=== PATIENT | male | born 1995 | race Two or more races ===

== ENCOUNTER 2021-02-21 10:39 | Emergency (ER) | payer OTHER ==
[~2021-02-21] VITALS: Ht 177.8 cm; Wt 99.8 kg
[2021-02-21 10:53] VITALS: BP 159/92
[2021-02-21] MEDS ORDERED: ACETAMINOPHEN ES 500 MG TABLET PO ONE (11:00)
[2021-02-21] MEDS ORDERED: ACETAMINOPHEN ES 500 MG TABLET ONE (11:02)
--- NOTE | 2021-02-21 11:02 | NUR ---
PATIENT TAKEN TO CT.
--- NOTE | 2021-02-21 11:37 | NUR ---
patient a/ox4, no change in loc, -n/v. ambulatory with steaday gait. Discharged to PD.
== END 2021-02-21 11:38 ==
LOC: ER 11:07
DX: S00.83XA Contusion of other part of head, initial encounter (principal); R51.9 Headache, unspecified; W22.8XXA Striking against or struck by other objects, initial encounter; Y93.89 Activity, other specified; Y92.89 Other specified places as the place of occurrence of the external cause; Y99.8 Other external cause status
CPT/HCPCS: 70450-TC

== ENCOUNTER 2022-01-25 10:01 | Inpatient (IN) | payer OTHER ==
[~2022-01-25] VITALS: Ht 172.7 cm; Wt 120.7 kg
--- NOTE | 2022-01-25 10:01 | NUR ---
PT [facility] FROM [facility] C/O WEAKNESS AND LETHARGIC STARTED THIS MORNING. PT IS AAOX2, ON NON RB AT 15LPM, HOOKED TO V/S MONITOR, KEPT RESTED AND COMFORTABLE. WILL CONTINUE TO MONITOR.
--- NOTE | 2022-01-25 10:13 | NUR ---
SEEN AND EXAMINED BY .
--- NOTE | 2022-01-25 10:22 | NUR ---
IV LINE ESTABLISHED BLOOD DRAWN AND SENT TO LAB.
--- NOTE | 2022-01-25 10:27 | NUR ---
RT AT BEDSIDE FOR ABG.
[2022-01-25] MEDS ORDERED: NALOXONE HCL 0.4 MG/ML AMPUL IV ONE (10:30)
[2022-01-25] MEDS ORDERED: NALOXONE PREFILLED SYRINGE 2 MG/2 ML SYRINGE ONE (10:31)
[2022-01-25 10:43] LABS: BASOPHILS % (AUTO) 0.2 % (0.0-2.0); EOSINOPHILS % (AUTO) 0.4 % (0.0-6.0); HEMATOCRIT 42 % (39-51); HEMOGLOBIN 14.3 g/dL (13.5-17.5); LYMPHOCYTES # (AUTO) 1.4 K/uL (0.8-4.8); LYMPHOCYTES % (AUTO) 12.3 % (20.0-44.0); MEAN CORPUSCULAR HGB CONC 34 g/dl (31.0-36.0); MEAN CORPUSCULAR VOLUME 88 fL (80-96); MONOCYTES # (AUTO) 0.6 K/uL (0.1-1.30); MONOCYTES % (AUTO) 5.3 % (2.0-12.0); NEUTROPHILS # (AUTO) 9.2 K/uL (1.8-8.9); NEUTROPHILS % (AUTO) 81.8 % (43.0-81.0); PLATELET COUNT (AUTO) 127 K/uL (150-450); WHITE BLOOD COUNT (AUTO) 11.3 K/uL (4.3-11.0)
[2022-01-25 10:45] LABS: CALCIUM, SERUM 8.4 mg/dL (8.5-10.1); CARBON DIOXIDE 27 mmol/L (21-32); CHLORIDE 102 mmol/L (98-107); CREATININE 1.1 mg/dL (0.6-1.3); GLUCOSE 126 mg/dL (74-106); POTASSIUM 4.6 mmol/L (3.5-5.1); SODIUM SERUM 138 mmol/L (136-145); UREA NITROGEN, BLOOD 15 mg/dL (7-18)
[2022-01-25 10:50] LABS: ALANINE AMINOTRANSFERASE 47 U/L (12-78); ALBUMIN 4.1 g/dL (3.4-5.0); ALCOHOL, BLOOD < 3 mg/dL (0-0); ALKALINE PHOSPHATASE 163 U/L (46-116); ASPARTATE AMINOTRANSFERASE 21 U/L (15-37); BILIRUBIN,DIRECT 0.1 mg/dL (0.0-0.2); BILIRUBIN,TOTAL 0.2 mg/dL (0.2-1.0); TOTAL PROTEIN, SERUM 7.9 g/dL (6.4-8.2)
[2022-01-25 10:54] LABS: ACETAMINOPHEN 0 ug/ml (10-30)
[2022-01-25 11:06] LABS: BILIRUBIN,URINE NEGATIVE (NEGATIVE); COLOR,URINE YELLOW (YELLOW); LEUKOCYTE ESTERASE ,URINE NEGATIVE (NEGATIVE); NITRITE, URINE NEGATIVE (NEGATIVE); PH,URINE 6.5 (5.0-8.0); PROTEIN,URINE NEGATIVE (NEGATIVE); UGLUCOSE NEGATIVE (NEGATIVE); UROBILINOGEN,URINE 0.2 EU/dL (0.2)
[2022-01-25 11:09] LABS: MetHb 0.6 % (0.0-1.5); SITE, ABG Right Radial
--- NOTE | 2022-01-25 12:14 | NUR ---
CALLED RADIOLOGY FOR CT SCAN.
--- NOTE | 2022-01-25 12:18 | NUR ---
COVID SWAB DONE AND SENT TO LAB
--- NOTE | 2022-01-25 12:18 | NUR ---
PT IS WHEELED TO CT SCAN VIA [facility].
[2022-01-25 12:23] LABS: ABG BASE EXCESS 1.8 mmol/L; ABG PCO2 59.3 mmHg (35.0-45.0); ABG PH 7.316 (7.350-7.450); ABG PO2 58.3 mmHg (75.0-100.0); COHb 0.4 % (0.5-1.5); O2Hb 89.3 % (94.0-97.0); VENT MODE, BG 15/5 20 30%
--- NOTE | 2022-01-25 12:41 | NUR ---
KLEVER JORDAN AT BEDSIDE FOR EVAL.
[2022-01-25] MEDS ORDERED: MAG HYDROX/AL HYDROX/SIMETH 30 ML UDC PO PRN (13:00)
[2022-01-25] MEDS ORDERED: MAGNESIUM HYDROXIDE 30 ML UDC PO PRN (13:00)
[2022-01-25] MEDS ORDERED: Z GUARD REMEDY 4 OZ OINT TP PRN (13:00)
[2022-01-25] MEDS ORDERED: ONDANSETRON HCL/PF 4 MG/2 ML VIAL IVP PRN (13:00)
[2022-01-25] MEDS ORDERED: ACETAMINOPHEN 325 MG TABLET PO PRN (13:00)
[2022-01-25] MEDS: IV NS 0.9% 1,000 ML IV PRN (16:17)
--- NOTE | 2022-01-25 17:53 | NUR ---
Received pt on 15 LPM via [facility]. ABG done at arrival per MD Robert. Pt placed on BIPAP 15/5 20 30% BIPAP settings changed post 1 hr ABG as noted. Will continue to monitor
[2022-01-25] MEDS ORDERED: ENOXAPARIN SODIUM 40 MG/0.4 ML DISP.SYRIN SQ ONE (18:53)
[2022-01-25] MEDS ORDERED: PANTOPRAZOLE 40 MG VIAL ONE (18:53)
[2022-01-25] MEDS: PANTOPRAZOLE 40 MG VIAL IV SCH (18:55)
[2022-01-25] MEDS: ENOXAPARIN SODIUM 40 MG/0.4 ML DISP.SYRIN SQ SCH (18:58)
--- NOTE | 2022-01-25 19:00 | NUR ---
PATIENT AAOX3, ANSWERING QUESTIONS, BREATHING EVEN AND NON LABORED, RAMON AT BEDSIDE
--- NOTE | 2022-01-25 19:56 | NUR ---
ICU 253
--- NOTE | 2022-01-25 20:15 | NUR ---
RN NOTES RECEIVED ER ADMISSION REPORT FROM DON SHELL. ALL PERTINENT ADMISSION INFO REGARDING PT NOTED. WILL WAIT FOR PT TO BE TRANSFERRED TO UNIT AND ADDRESS NEEDS ACCORDINGLY. FARM MACHINERY ASSEMBLER MADE AWARE.
--- NOTE | 2022-01-25 20:27 | NUR ---
REPORT GIVEN TO JAMI OCHOA FOR CONTINUATION OF CARE
[2022-01-25 20:50] VITALS: BP 108/73
--- NOTE | 2022-01-25 20:50 | NUR ---
RN NOTES RECEIVED PT FROM ER VIA [facility] ACCOMPANIED BY 2 ER STAFF AND 2 [facility]. PT TRANSFERRED TO BED VIA 2 PERSON ASSIST. PT IS A/OX2; LETHARGIC. PT ON 2L OF 02 VIA AL WITH RESPIRATIONS EVEN AND UNLABORED. COMPREHENSIVE PHYSICAL ASSESSMENT, PT NOTED TO HAVE R ARM SWELLING. PATIENT CARE DONE. BASELINE VITALS SIGNS TAKEN. CALL LIGHT WITHIN REACH, SAFETY MEASURES AND ISOLATION PRECAUTION IN PLACE, WILL CONTINUE MONITOR AND ASSESS THROUGHOUT THE SHIFT. WILL CARRY OUT MD ORDERS ACCORDINGLY. STRAND BUNCHER FINE WIRE MADE AWARE.
--- NOTE | 2022-01-25 20:54 | NUR ---
PT TRANSFERRED TO ICU 253 VIA ACLS PROTOCOL. AAO X 2, NS INFUSING AT [place] AT 75 ML/HR, PT STABLE ON 2 L VIA NC, SATURATION AT 97%.
[2022-01-25 21:00] VITALS: BP 108/73
[2022-01-25 22:00] VITALS: BP 113/63
[2022-01-25 22:30] VITALS: BP 113/63
[2022-01-25 23:00] VITALS: BP_SYST 106; BP_SYST 116; BP_DIAS 55; BP_DIAS 89
[2022-01-25 23:30] VITALS: BP 116/89
--- NOTE | 2022-01-25 23:32 | NUR ---
RN NOTES NOTIFIED HANANE RACHEL (RUPERT KAMARA) FOR PT'S DIET ORDER, MENTIONED THAT PER ADMISSION NOTES NPO FOR NOW UNTIL PT IS FULLY AWAKE. CURRENTLY PT IS MORE AWAKE AND ORIENTED AND HAS BEEN REQUESTING FOR FOOD AND DRINK. FOREIGN LEGAL CONSULTANT MADE AWARE. AWAITING FOR HANANE RACHEL'S RESPONSE. Addendum: 01/25/22 at 2343 by WANDA CHARLES RN PER HANANE RACHEL (RUPERT KAMARA) JUST MONITOR OVERNIGHT AND MAINTAIN NPO FOR NOW. FOREIGN LEGAL CONSULTANT MADE AWARE.
[2022-01-26] VITALS (39 sets, daily range): BP systolic 93–149; BP diastolic 23–101
--- NOTE | 2022-01-26 04:00 | NUR ---
RN NOTES NO NOTED CHANGES IN PATIENT CONDITION AT THIS TIME; PATIENT VITALS STABLE, NO SIGNS OF ACUTE RESPIRATORY DISTRESS. AM PATIENT CARE RENDERED.WILL CONTINUE TO MONITOR AND REASSESS FOR ANY CHANGES THROUGHOUT THE SHIFT.
[2022-01-26 05:08] LABS: BASOPHILS % (AUTO) 0.5 % (0.0-2.0); EOSINOPHILS % (AUTO) 1.2 % (0.0-6.0); HEMATOCRIT 39 % (39-51); HEMOGLOBIN 12.9 g/dL (13.5-17.5); MEAN CORPUSCULAR HGB CONC 33 g/dl (31.0-36.0); MEAN CORPUSCULAR VOLUME 89 fL (80-96); MONOCYTES # (AUTO) 0.6 K/uL (0.1-1.30); MONOCYTES % (AUTO) 7.4 % (2.0-12.0); NEUTROPHILS # (AUTO) 5.6 K/uL (1.8-8.9); NEUTROPHILS % (AUTO) 66.9 % (43.0-81.0); PLATELET COUNT (AUTO) 114 K/uL (150-450); RED BLOOD CELL COUNT(AUTO) 4.34 MIL/uL (4.5-6.0); WHITE BLOOD COUNT (AUTO) 8.4 K/uL (4.3-11.0)
[2022-01-26 05:54] LABS: CALCIUM, SERUM 8.7 mg/dL (8.5-10.1); CREATININE 0.9 mg/dL (0.6-1.3); MAGNESIUM 1.9 mg/dL (1.8-2.4); PHOSPHORUS 3.3 mg/dL (2.5-4.9)
--- NOTE | 2022-01-26 06:26 | NUR ---
RN CLOSING NOTE: PATIENT REMAINS IN ROOM IN NO SIGNS OF RESPIRATORY DISTRESS, PATIENT STILL ON 2L OF 02 VIA NC;TOLERATING WELL SATURATING @ >95% SP02. SAFETY MEASURES IMPLEMENTED, BED IN LOWEST POSITION, LOCKED, SIDE RAILS UP, CALL LIGHT WITHIN REACH. ALL NEEDS AND ORDERS ADDRESSED DURING THE SHIFT. IV ACCESS MAINTAINED INTACT, SECURED AND FLUSHING WELL AND WITH RUNNING IVF PRESCRIBED. STILL ON NPO AT THIS TIME. PATIENT KEPT CLEAN AND COMFORTABLE WITHIN THE SHIFT. PATIENT ENDORSED TO INCOMING SHIFT RN WITH STABLE VITAL SIGN AND FOR CONTINUITY OF CARE.
[2022-01-26 06:32] LABS: THYROID STIMULATING HORMONE 0.598 uIU/mL (0.358-3.74)
--- NOTE | 2022-01-26 09:35 | NUR ---
LEFT A MESSAGE TO Solange JORDAN FOR DIET ORDER. AWAITING RESPONSE.
[2022-01-26] MEDS: PANTOPRAZOLE 40 MG VIAL IV SCH (09:56)
[2022-01-26] MEDS: IV NS 0.9% 1,000 ML IV PRN ×2 (09:56→19:52)
[2022-01-26] MEDS: ENOXAPARIN SODIUM 40 MG/0.4 ML DISP.SYRIN SQ SCH (13:00)
[2022-01-26 17:04] LABS: ABG PCO2 54.2 mmHg (35.0-45.0); ABG PH 7.331 (7.350-7.450); ABG PO2 49.9 mmHg (75.0-100.0); AaDO2 34.9 mmHg; MetHb 0.2 % (0.0-1.5); SITE, ABG Right Radial; VENT MODE, BG 21% RA
--- NOTE | 2022-01-26 19:15 | NUR ---
RN NOTES RECEIVED PT REPORT FROM DON MCKINNEY FOR GISSELL.
--- NOTE | 2022-01-26 19:30 | NUR ---
RN NOTES PT TRANSFERRED TO MED SURG UNIT 320#1; BEDSIDE REPORT GIVEN TO DON BETTS, FOR GISSELL. TRANSFERRED PT IN STABLE CONDITION; V/S WNL. ALL BELONGINGS, MEDICATIONS AND CHART PROVIDED TO RN, SECURITIES LENDING TRADER MADE WELL AWARE.
--- NOTE | 2022-01-26 21:34 | NUR ---
RN RECEIVING TRANSFER NOTE PATIENT BROUGHT TO 3W UNIT VIA GURNEY. PATIENT A/OX1. PATIENT'S VS STABLE W/ BP SLIGHTLY HYPOTENSIVE (94/56). PATIENT WAS IMMEDIATELY ADMINISTERED IVF NS 75ML/HER PER MD ORDER. PATIENT ARRIVED W/ NC ON 2L O2 - THIS IS CONTINUOUS. NO S/S OF DISTRESS. [place] MIDLINE #18 INTACT AND PATENT. SAFETY MEASURES IN PLACE: BED AT LOWEST POSITION, LOCKED, RAILS UP X3, CALL JORDAN WITHIN REACH. PATIENT ATTENDED BY TWO POLICE OFFICERS - PATIENT HAVING LEFT HAND HANDCUFFED TO BED. PATIENT IS MEDSURG, BUT WILL BE CLOSELY MONITORED DUE TO HIS ADMITTING DIAGNOSIS. BELONGINGS ACCOUNTED FOR AND LOGGED INTO SHEET AND PLACED IN CHART. AN ATTEMPT WAS MADE TO ORIENT THE PATIENT TO THE ROOM AND UNIT, USE OF CALL JORDAN, ETC., BUT PATIENT TOO DROWSY TO RESPOND. PATIENT RESPONDS TO NAME AND STERNAL RUBS. PATIENT O/W STABLE; WILL CONTINUE TO MONITOR PATIENT.
[2022-01-27] VITALS: BP 109/55
--- NOTE | 2022-01-27 | NUR ---
RN NOTE PATIENT HAS SHOWN SIGNS OF IMPROVEMENT. ALTHOUGH PATIENT IS MEDSURG, VS WERE RETAKEN @0000 REVEALING AN INCREASE IN BP AND O2 (109/55, 98% RESPECTIVELY). PATIENT IS NOW A/OX3; HOWEVER, HE NODS OFF IMMEDIATELY AFTER ANSWERING QUESTIONS. PATIENT STABLE; WILL CONTINUE TO MONITOR PATIENT.
--- NOTE | 2022-01-27 04:00 | NUR ---
RN NOTE PATIENT HAS CONTINUED TO SHOW SIGNS OF IMPROVEMENT. AGAIN, ALTHOUGH PATIENT IS MEDSURG, VS ARE BEING CLOSELY MONITORED. BP AND O2 HAVE DECREASED AGAIN, BUT STAYING WITHIN RECENTLY ESTABLISHED TREND (90/48, 95%). PATIENT CONTINUES TO BE A/OX3; HE STILL NODS OFF IMMEDIATELY AFTER ANSWERING QUESTIONS; HE IS, HOWEVER, ASKING QUESTIONS, MORE AWARE OF HIS SURROUNDINGS, AND ASKING FOR WATER. I WAS ABLE TO ORIENT HIM MORE TO THE UNIT ( OPPOSED TO PREVIOUSLY WHEREIN I COULD NOT UPON HIS ARRIVING TO THE UNIT). PATIENT STABLE; WILL CONTINUE TO MONITOR PATIENT.
--- NOTE | 2022-01-27 07:23 | NUR ---
MS RN OPENING NOTES RECEIVED PATIENT AWAKE IN BED. PATIENT IS A/O TIMES 4. NO PAIN NOTED. NO SOB NOTED. NO DISTRESS NOTED. PATIENT ABLE TO MAKE NEEDS KNOWN. NO DISCOMFORT NOTED. ON O2 INHALATION VIA NASAL CANNULA AT 2 L/MIN. TOLERATING WELL. IV ACCESS IS ON [place] MIDLINE . INTACT AND PATENT RUNNING NS AT 75ML/HR. HE HAS CONDOM CATHETER . 2 OFFICER FROM [facility] SITTING AT THE PATIENT'S BED SIDE. SAFETY MEASURES IN PLACE. BED LOCKED IN THE LOWEST POSITION. CALL LIGHT AND TABLE IN REACH. WILL CONTINUE TO MONITOR.
--- NOTE | 2022-01-27 07:24 | NUR ---
RN CLOSING NOTE PATIENT ASLEEP IN BED, HEARING CONSULTANT AT BEDSIDE. A/OX3. NO S/S OF DISTRESS; BREATHING WELL ON 2L NC. [place] MID[place] W/ NS 75ML/HR. SAFETY MEASURES IN PLACE: BED AT LOWEST POSITION, LOCKED, RAILS UP X3, CALL JORDAN WITHIN REACH. REPORT ENDORSED TO AND ACKNOWLEDGED BY RNGENEVIEVE, FOR GISSELL.
[2022-01-27 08:00] VITALS: BP 116/58
[2022-01-27] MEDS: PANTOPRAZOLE 40 MG VIAL IV SCH (08:10)
[2022-01-27] MEDS: IV NS 0.9% 1,000 ML IV PRN (10:10)
--- NOTE | 2022-01-27 13:06 | NUR ---
FAST FOOD DELIVERY DRIVER NOTES DISCHARGE PATIENT IN STABLE CONDITION . NO PAIN NOTED. NO SOB NOTED NO DISTRESS NOTED. VITAL SIGNS IN NORMAL RANGES. PATIENT WAS ABLE TO AMBULATE TO THE BATHROOM AND HALLWAY. 2 OFFICER AT THE BED SIDE. ALL THE BELONGINGS ACCOUNTED AND SIGNED FOR. RIGHT UPPER ARM MIDLINE REMOVED. THE TIP NOTED INTACT. COVERED THE SPOT WITH DRY DRESSING. NO BLEEDING NOTED. EFRAIN THE CARDIAC CATH TECHNICIAN WHEELED THE PATIENT TO THE LOBBY. PATIENT LEFT HOSPITAL WITH 2 OFFICERS AT 1300. MD AND CHARGE NURSE AWARE OF THE DISCHARGE.
[2022-01-28] MEDS ORDERED: PANTOPRAZOLE 40 MG TABLET.DR PO SCH (09:00)
== END 2022-01-27 13:10 | DRG 189 ==
LOC: ER 10:04 → TRANSITION 16:51 → ICU 20:00 → MED 01-26 19:25
PROVIDERS: ADMIT Nurse Practitioner Acute Care; ATTEND Nurse Practitioner Acute Care
PROC: 5A09357 Assistance with Respiratory Ventilation, Less than 24 Consecutive Hours, Continuous Positive Airway Pressure (ICD-10-PCS; principal; 2022-01-25)
PROC: 05HB33Z Insertion of Infusion Device into Right Basilic Vein, Percutaneous Approach (ICD-10-PCS; 2022-01-25)
DX: J96.21 Acute and chronic respiratory failure with hypoxia (principal); E66.2 Morbid (severe) obesity with alveolar hypoventilation; G93.40 Encephalopathy, unspecified; J96.22 Acute and chronic respiratory failure with hypercapnia; Z20.822 Contact with and (suspected) exposure to COVID-19; Z68.39 Body mass index [BMI] 39.0-39.9, adult; G47.10 Hypersomnia, unspecified
CPT/HCPCS: 36415; 36600; 70450-TC; 71045-TC; 80048-TC; 80076-TC; 82803-TC; 82962-TC; 83735-TC; 84100-TC; 84443-TC; 85025-TC; 85730-TC; 94660; 94799-TC; A4349; C9113; C9803; G0378; G0480; J1650; J2310; J7030